=== PATIENT | male | born 1980 | race Caucasian/White ===

== ENCOUNTER 2023-05-15 19:32 | Outpatient (CLI) | payer MEDICARE ==
--- NOTE | 2023-05-16 10:49 | P.PCN ---
Description of Procedure: CLINICAL: Titration with positive air pressure has been done for correction of respiratory abnormalities during sleep. DESCRIPTION OF PROCEDURE: The standard montage for clinical polysomnography included the electroencephalogram, the electrocardiogram, the mentalis surface electromyography and Lead II cardiography. The respiratory battery consisted of measurements of nasal /buccal air flow, pressure transducer measurements from the nose, thoracic and /or abdominal effort and intercostal surface electromyography. Video monitoring has been done to check for any parasomnia events. Nocturnal oxyhemoglobin saturations were obtained by finger oximetry. Step-martin titration with positive airway pressure was utilized to control respiratory events. Raw data of sleep recording has been reviewed and is adequate. RESULTS: Sleep efficiency was normal 91.5 %. Latency to sleep onset was slightly increased to 30.5 minutes.]. Sleep architecture showed stage N1 was slightly short 4.1 %, Delta sleep was absent 0 %, REM sleep was slightly decreased to 16.0 %. Heart rate was minimum 58 BPM, maximum 65 BPM, average 62 BPM. EMG showed 0 periodic limb movements. PAP titration have been done with CPAP up to the pressure 14 cm H2O. Patient had problems with CPAP, switched to BPAP. BPAP titrated up to 20/16 cm H2O. The best results were at the pressure 16/12 cm H2O. Apnea hypopnea index reduced to 2.8. Patient was at that pressure in non-REM sleep for 14.6 minutes and in REM sleep for 49.7 minutes. IMPRESSION: 1. Obstructive sleep apnea hypopnea syndrome on controle with BPAP treatment. 2. No significant periodic limb movements have been documented. Please see other impressions from consultation. PLAN: 1. The patient will have treatment with positive air pressure equipment with the level of pressure AutoBPAP maximum inspiratory pressure 20, minimal expiratory pressure 10, pressure-support 4 cm H2O and should use it every night for the whole night. 2. Watching and losing weight. 3. Sleep hygiene with regular time in bed for at least 8 hours. 4. No driving if feeling any sleepiness. 5. I will see the patient for follow up visit to explain the results of the test, recommendations, check compliance with treatment and make any necessary adjustment related to mask fitting, pressure and humidification. Thank you very much for allowing me to participate in the management of your patient. Sincerely, Etienne Clemente MD, PhD, FAASM Diplomat of [employer] Sleep Medicine Board of [place] [facility] [place]
== END 2023-05-16 05:15 | disposition home or self-care (01) ==
LOC: 3 N SLEEP 19:32
PROVIDERS: ATTEND Internal Medicine
DX: G47.33 Obstructive sleep apnea (adult) (pediatric) (principal)
CPT/HCPCS: 95811

== ENCOUNTER → 2023-12-20 | Outpatient (CLI) | payer MEDICARE ==
[2023-12-20 17:06] VITALS: BP 137/90; PULSE 62; RESP 16; TEMP 98.3
--- NOTE | 2023-12-20 17:27 | P.PROGSL ---
Subjective DATE: 12/20/2023 FOLLOW UP VISIT. Patient with obstructive sleep apnea hypopnea syndrome return to sleep center for follow-up visit. Information from previous visit have been reviewed. This is first visit after patient received new CPAP unit. Patient is using PAP equipment every night for the whole night, getting PAP supplies in time. The patient does not have significant problems with the mask, PAP unit and humidification. [place]on sleepiness scale is significantly increased to 17. I checked information from PAP unit. PAP unit pressure maximal inspiratory pressure 20.4, minimal expiratory pressure 10, average pressure 16.7/12.7, pressure support 4 cm H2O. Usage is 100% for more then 4 hours, average 8.8 hours per night. Leak is 17 l/m, which is in acceptable range. Apnea Hypopnea Index is 1.2, which is normal. MEDICATIONS: Please see below, weight 346 pounds, BMI 42.1 During physical exam: GENERAL: A pleasant patient without any distress. VITAL SIGNS: Please see below. HEENT: PERRLA, EOMI.low position of soft palate, Mallapati[] . NECK: Supple. No JVD. LUNGS: Clear to percussion and to auscultation. Good air exchange. No wheezing or rhonchi. HEART: S1, S2 regular. Systolic murmur, mostly on pulmonary valve. ABDOMEN: Soft and nontender.[] EXTREMITIES: No clubbing or cyanosis. UNDERTAKER HELPER: Awake, alert, and oriented x3. No focal deficit. Impressions: 1. Obstructive sleep apnea-hypopnea syndrome. Patient demonstrated great compliance with treatment, benefiting from treatment. 2. Hypertension. 3. 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 Patient is preparing for replacement of pulmonary valve. 4. Hypertension. 5. Anxiety. 6. History of depression. 7. Status post surgical treatment for ventricular septal defect. Plan: 1. Continue using PAP equipment every night for the whole night. 2. To change air filter at least 1-2 times per month. 3. PAP unit should stay lower then position of the head. 4. Advised patient to remove all remaining water from humidifier canister daily and make it dry after each usage. Refill canister with fresh distilled water before each usage. 5. Sleep hygiene with regular time in bed for at least 8 hours. 6. Precautions related to driving. No driving if feel any sleepiness. 7. I will maintain prescription for PAP supplies including mask, tube, filters. 8. Watching and losing weight. 9. Follow up visit in 6 months or earlier if patient has any problems. Thank you very much for allowing me to participate in the management of your patient. Etienne Clemente MD, PhD, FAASM. Diplomat of [employer] [employer], Sleep Medicine Board by [employer] [employer] [facility] [place] Objective - Vital Signs Vital Signs: Vital Signs Temp 98.3 F 12/20/23 17:06 Pulse 62 12/20/23 17:06 Resp 16 12/20/23 17:06 BP 137/90 12/20/23 17:06 Pulse Ox 95 12/20/23 17:06 FiO2 Intake & Output 12/19/23 12/20/23 12/20/23 18:59 06:59 18:59 Weight 156.943 kg Home Medications: Home Medications Medication Instructions Recorded Confirmed Type Atorvastatin [Lipitor] 20 mg PO DAILY 12/20/23 12/20/23 History Cariprazine HCl [Vraylar] 1.5 mg PO DAILY 12/20/23 12/20/23 History Metoprolol Succinate [Kapspargo 25 mg PO DAILY 12/20/23 12/20/23 History Sprinkle] Semaglutide [Ozempic] See Rx Instructions .ROUTE .COMPLEX 12/20/23 12/20/23 History Sertraline HCl 200 mg PO DAILY 12/20/23 12/20/23 History lisinopriL [Zestril] 2.5 mg PO DAILY 12/20/23 12/20/23 History
== END | disposition home or self-care (01) ==
LOC: 3 N SLEEP 16:29
PROVIDERS: ATTEND Internal Medicine
DX: G47.33 Obstructive sleep apnea (adult) (pediatric) (principal); I10 Essential (primary) hypertension; F41.9 Anxiety disorder, unspecified; Z98.890 Other specified postprocedural states; Z99.89 Dependence on other enabling machines and devices; Z86.59 Personal history of other mental and behavioral disorders; Z79.02 Long term (current) use of antithrombotics/antiplatelets; Z79.899 Other long term (current) drug therapy
CPT/HCPCS: 99212